=== PATIENT | male | born 1970 | race Caucasian/White ===

== ENCOUNTER 2020-11-01 10:00 | Inpatient (IN) | payer OTHER ==
[~2020-11-01] VITALS: Ht 182.9 cm; Wt 105.5 kg
[2020-11-01 10:01] VITALS: BP 118/91
[2020-11-01 10:28] LABS: ABSOLUTE NEUTROPHILS 13.6 thou/uL (1.4-8.2); BASOPHILS 0.5 % (0.0-2.0); HEMATOCRIT 48.5 % (42.0-52.0); HEMOGLOBIN 16.4 gm/dL (14.0-18.0); LYMPHOCYTES 3.3 % (24.0-44.0); MCHC 33.8 g/dL (28.0-37.0); MCV 88.6 fL (80.0-100.0); MONOCYTES 2.7 % (1.0-8.0); PLATELET COUNT 256 thou/uL (150-400); POLYS 93.5 % (36.0-66.0); RBC 5.48 mil/uL (4.50-6.00); RDW 12.6 % (10.5-14.5); WBC 14.5 thou/uL (4.0-11.0)
[2020-11-01 10:35] LABS: CALCIUM 9.2 mg/dL (8.5-10.1); CREATININE 1.3 mg/dL (0.7-1.3); POTASSIUM 4.2 mmol/L (3.5-5.1)
[2020-11-01 10:41] LABS: ALBUMIN 2.9 g/dL (3.4-5.0); TOTAL BILIRUBIN 0.8 mg/dL (0.2-1.0); TOTAL PROTEIN 7.2 g/dL (6.4-8.2)
[2020-11-01 11:24] LABS: BE(vivo) -4.2 mmol/L (-2 to +3); PCO2 34.9 mmHg (35.0-45.0); PO2 100.8 mmHg (80.0-100.0); pH 7.377 (7.360-7.450); sO2 97.5 % (92.0-98.0)
--- NOTE | 2020-11-01 13:32 | EKG ---
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
[2020-11-01 13:33] LABS: LARGE PLATELETS RARE
[2020-11-02] VITALS (117 sets, daily range): BP systolic 81–166; BP diastolic 38–98
--- NOTE | 2020-11-02 02:00 | NUR ---
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 COOPERATIVE. A VERY SWEET GENTLEMAN/ ON 100 % BIPAP O2 SAT 93 % WHEN ASKED HE SAID YES TO INTUBATION IF NEEDED. THAT HE HAS GRAND CHILDREN HE WANTS TO SEE GROW UP. WILL CONT TO MONITOR.
[2020-11-02 04:37] LABS: BE(vivo) -5.3 mmol/L (-2 to +3); HCO3 18.8 mmol/L (22.0-26.0); PO2 64.1 mmHg (80.0-100.0); pH 7.374 (7.360-7.450); sO2 92.2 % (92.0-98.0)
--- NOTE | 2020-11-02 06:00 | NUR ---
REMAINS ON 100 % BIPAP. RESP RATE 28 TO 42. O2 92 TO 93 % SINS TACH RATE 102 AFEBRILE. REMAINIS IN ENHANSED PRECAUTIONS FOR COVID 19
[2020-11-02 07:27] LABS: HEMATOCRIT 42.9 % (42.0-52.0); MCH 29.4 pg (26.0-34.0); MCHC 33.1 g/dL (28.0-37.0); RBC 4.82 mil/uL (4.50-6.00); RDW 12.5 % (10.5-14.5); WBC 14.7 thou/uL (4.0-11.0)
[2020-11-02 07:35] LABS: HEMOGLOBIN 14.2 gm/dL (14.0-18.0)
[2020-11-02 07:46] LABS: ALBUMIN 2.4 g/dL (3.4-5.0); CALCIUM 8.6 mg/dL (8.5-10.1); CREATININE 1.1 mg/dL (0.7-1.3); TOTAL BILIRUBIN 0.6 mg/dL (0.2-1.0); TOTAL PROTEIN 7.4 g/dL (6.4-8.2)
--- NOTE | 2020-11-02 10:36 | NUR ---
VASCULAR ACCESS CONSULTED FOR PICC LINE. PT'S LABS,MEDS,HX ORDER AND CONSENT VERIFIED. DISCUSSED BENEFITS AND RISK OF PICC WITH PT, VERBALIZED UNDERSTANDING. SHRADDHA BASILIC WAS WIDELY PATENT DL POWER PICC TRIMMED TO 45CM INSERTED TO 1CM EXTERNAL. PT TOLERATED WELL. STAT CXR ORDERED
--- NOTE | 2020-11-02 12:12 | HC ---
[facility] [place] [address] CONSULTATION Name: KALEIGH SILVER Room #: 243-P ADM IN M.R.#: [id number] Admission: 11/01/20 Attend Phys: Urmila Morgan Discharge: Date of : 68 Report #: [id number] THIS REPORT FOR: cc: KARLENE - Family physician unknown KARLENE - Family physician unknown Garfield Rizo MD ~ DATE OF SERVICE: 11/02/2020 INFECTIOUS DISEASE CONSULTATION ATTENDING PHYSICIAN: Urmila Morgan MD REASON FOR EVALUATION: COVID-19 infection, complicated by pneumonitis and respiratory failure. HISTORY OF PRESENT ILLNESS: Chart reviewed, the patient examined. This is a 50-year-old with history of diabetes mellitus, also rheumatoid arthritis, who states he has been feeling somewhat poorly over the last 4 weeks. He was tested for COVID 1 week ago, was confirmed to be positive. He has been quarantining at home; however, due to worsening signs and symptoms, he did come to the Emergency Room. He was found to be hypoxemic, now on ventilatory support with BiPAP 15 liters per minute, FiO2 of 100%. He does admit to fevers. He has had some GI related complaints, those have seemingly resolved and some anorexia. Additional evaluation noted blood sugar was 400 on admission. Creatinine 1.3 that is improved to 1.1 now. Albumin 2.9. Troponin level was normal. Lactic acid was elevated at 3.3, repeat later was down to 1.7. Blood cultures 1 out of 2 with growth of gram-positive cocci. CTA chest PE protocol due to followup chest x-ray, which showed bilateral infiltrates, did show no evidence of pulmonary emboli, did show extensive chronic pulmonary changes with underlying ground-glass pulmonary appearance and bronchiectasis. He was empirically started on antimicrobial therapy with Levaquin and cefepime, initially given dose of azithromycin and Zosyn. ALLERGIES: LISTED TO ZOSYN DESCRIBED A GENERALIZED ITCH. MEDICATIONS: Include alteplase, cholecalciferol, thiamine, levothyroxine, dexamethasone, ascorbic acid, zinc, famotidine, cefepime, enoxaparin, nitroglycerin, p.r.n. analgesics. PAST MEDICAL HISTORY: As described above, diabetes mellitus, has a history of asthma, history of hypertension, previous appendectomy, rheumatoid arthritis. SOCIAL HISTORY: Nonsmoker, no ethanol, no illicit drug use. FAMILY HISTORY: Noncontributory. [address] [address] CONSULTATION Name: KALEIGH SILVER Room #: 243-P [facility] IN ..#: [id number] Admission: 11/01/20 Attend Phys: Urmila Morgan Discharge: Date of : 68 Report #: [id number] REVIEW OF SYSTEMS: Otherwise, limited due to his state and dyspnea. PHYSICAL EXAMINATION: GENERAL: Appears somewhat chronically ill, undernourished. He is pleasant, cooperative, does have episodic paroxysms of coughing, trying to speak, appears somewhat undernourished. VITAL SIGNS: Temperature 98.3, pulse 105, respirations 27, blood pressure 130/77. SKIN: Warm, dry, no rashes. HEENT: Normocephalic. Extraocular muscles intact. He has got a full mask BiPAP in place. NECK: Supple. LUNGS: Transmitted upper airway sounds, does have some crackles, coarse sounds at the bases. I do not appreciate any wheezes at the moment. HEART: Distant, tachycardic. I do not appreciate any murmurs or irregularity. ABDOMEN: Soft, nontender, nondistended. EXTREMITIES: No cyanosis. GENITOURINARY AND RECTAL: Deferred. LABORATORY DATA: Blood cultures described above, 1 out of 2 with gram-positive cocci. Chest x-ray from this morning showed interstitial opacities throughout both lungs. Lactic acid now 1.7, down from 3.3. Electrolytes: Sodium 137, potassium 4.0, chloride 98, bicarbonate is 18, anion gap of 21, BUN and creatinine 31 and 1.1, glucose of 343, albumin 2.4, total protein 7.4. Estimated GFR of 71. CBC: White count 14.7, H and H 14.2 and 42.9, platelets of 264. ASSESSMENT: COVID-19 infection, complicated by pneumonitis, respiratory failure. Apparently based on CT, he has underlying lung disease. Whether this is due to the chronic asthma and perhaps repeated lower respiratory tract inflammatory process, also has diabetes mellitus, it is at this point uncontrolled, may have a degree of immunosuppression due to his rheumatoid arthritis. We will continue empiric antibacterial therapy given possibility of secondary bacterial pneumonitis. We will add remdesivir and ivermectin as well given the tenuous nature of his situation. Continue dexamethasone as well as vitamins. He remains quite tenuous and may well get worse before he gets better. Thank you and we will follow. <ELECTRONICALLY SIGNED> By: Garfield Rizo MD 11/02/20 1212 [id number] [id number] Garfield Rizo MD /nt
--- NOTE | 2020-11-02 12:43 | NUR ---
CXR SHOWED PICC UP RIJ. ATTEMPTED OTW WITH NEW KIT UNSUCCESSFUL, ATTEMPTED SHRADDHA CEPHALIC UNABLE TO PASS GUIDEWIRE. THEN DID SHRADDHA BASILIC, TL PICC TRIMMED AT 45CM INSERTED TO 3CM EXTERNAL. STAT CXR DONE. PICC RELEASED FOR IMMEDIATE USE TO SARWAT DE LOS SANTOS PER PROTOCOL
--- NOTE | 2020-11-02 18:15 | NUR ---
VASCULAR ACCESSBTEM CALLED BACK TO ICU PT PULLED OUT PICC LINE. PT NOW HAS RESTAINTS ON. CHRISTIANO BRACHIAL WAS WIDELY PATENT WITH USG. 4FR DL PICC TRIMMED TO 48CM INSERTED TO 2CM EXTERNAL. STAT CXR ORDERED
--- NOTE | 2020-11-02 18:30 | NUR ---
1293 DR. FELIZ SPOKEN TOO ABOUT PATIENTS ELEVATED RR. ORDERS GIVEN. PATIENT DURING SHIFT INITIATED ON PRECEDEX GTT PER DR FELIZ ORDER. PATIENT RESPRITORY RATE IMPROVING. DURING THE SHIFT PATIENT BECAME MORE CONFUSED. PATIENT FORGETS WHAT CITY HE IS IN BUT IS ABLE TO STATE WHAT STATE. PATIENT PULLS OUT PICC LINE THAT WAS PLACED AT 1705. DR FELIZ NOTIFIED OF THE CHANGES IN MENTAL STATUS. NEW PICC LINE REINSERTED. CIWA SCORING STARTED PER DR. MAHARAJ.
--- NOTE | 2020-11-02 19:00 | NUR ---
CXR CONFIRMS PICC IN UPPER SVC, PICC RELEASED FOR IMMEDIATE USE PER PROTOCOL TO SARWAT DE [place] SANTOS. PICC ADVANCED 2CM EXTERNAL NOW 0CM
[2020-11-03] VITALS (98 sets, daily range): BP systolic 77–151; BP diastolic 40–89
[2020-11-03 00:03] LABS: BE(vivo) -4.5 mmol/L (-2 to +3); HCO3 20.7 mmol/L (22.0-26.0); PO2 84.2 mmHg (80.0-100.0); pH 7.343 (7.360-7.450); sO2 95.8 % (92.0-98.0)
[2020-11-03 04:48] LABS: CALCIUM 8.6 mg/dL (8.5-10.1); CREATININE 1.1 mg/dL (0.7-1.3); DIRECT BILIRUBIN 0.1 mg/dL (<0.1-0.2); POTASSIUM 4.3 mmol/L (3.5-5.1); TOTAL BILIRUBIN 0.5 mg/dL (0.2-1.0); TOTAL PROTEIN 6.7 g/dL (6.4-8.2)
--- NOTE | 2020-11-03 08:15 | NUR ---
0745- REPORT RECEIVED FROM MAGALI SERRANO. ZACH STATES HE WILL NOTIFY FAMILY OF PT'S INTUBATION PRIOR TO ENDING HIS SHIFT.
--- NOTE | 2020-11-03 08:17 | NUR ---
When tube feeds ready to start, recommend vital high protein goal 40ml/hr and 200 ml water flush mixed with 1 packet beneprotein every 6hr. If no feeding pump available, use 4 cartons vital high protein per day bolus.
--- NOTE | 2020-11-03 09:57 | NUR ---
cm completed initial assessment to intro cm role and obtain pyschosocial hx. cm spk w/pt d/t covid 19 precautions. pt lives w/ g/f ileana. 6 steps from garage to main level, 6 steps from main level to br. pt is unemployeed, independent w/cares, active, drives has walker /wc (needs new tires). ileana denies hx of snf or hh, "not to my knowledge. cm to cont to follow.
--- NOTE | 2020-11-03 09:59 | NUR ---
PT'S DPOA LALO WASHINGTON CALLED AND GOT PT UPDATE FROM RN. LALO STATES SHE IS UPSET THAT NO ONE CALLED HER YESTERDAY TO INFORM HER HE HAD TO BE INTUBATED AND PUT ON THE VENTILATOR. RN ANSWERED LALO'S QUESTIONS AND OFFERED FACETIME AN OPTION IF SHE WANTS TO SEE THE PT. SHE DECLINED AT THIS TIME BUT STATES SHE WOULD LIKE A PHONE CALL IF ANYTHING SHOULD CHANGE IN THE PT'S CONDITION.
--- NOTE | 2020-11-03 20:07 | NUR ---
PT WAS HAVING DIFFICULTY KEEP O2 SAT > THAN 90% WITH A FIO2 OF 100% ON THE VENTILATOR. RT WORKED VARIOUS DIFFERENT SETTING WITH THE VENT THROUGH OUT THE DAY AND ENDED UP CHANGING THE VENT FROM AC TO APRV. PT'S SATS INCREASED TO 99-100% AND PT APPEARED TO BE LESS LABORED WITH BREATHS.
[2020-11-03 20:42] LABS: BE(vivo) -4.7 mmol/L (-2 to +3); HCO3 22.1 mmol/L (22.0-26.0); PCO2 47.1 mmHg (35.0-45.0); PO2 142.7 mmHg (80.0-100.0); sO2 98.6 % (92.0-98.0)
[2020-11-03 22:12] LABS: BE(vivo) -2.9 mmol/L (-2 to +3); HCO3 22.4 mmol/L (22.0-26.0); PCO2 41.3 mmHg (35.0-45.0); PO2 67.7 mmHg (80.0-100.0); pH 7.353 (7.360-7.450); sO2 92.7 % (92.0-98.0)
[2020-11-04] VITALS (88 sets, daily range): BP systolic 82–122; BP diastolic 48–73
--- NOTE | 2020-11-04 02:43 | NUR ---
[address] FELIZ VIA PHONE REGARDING PT'S RESPIRATORY STATUS. ABGs DRAWN. CRITICAL pH REPORTED AT 7.29. ORDER TO CHANGE PT BACK TO ORIGINAL VENT SETTINGS ORDERED. WHICH WERE FOLLOWS: AC RR 18 TV 550 PEEP 12 FIO2 100% ORDER TO GIVE 2 AMPS BICARB AND REDRAW ABGs IN ONE HOUR. 2208 ABGs IMPROVED. PT SATs >92%.
[2020-11-04 06:48] LABS: ANION GAP 12 mmol/L (7-16); BUN 42 mg/dL (7-18); CALCIUM 8.8 mg/dL (8.5-10.1); CHLORIDE 106 mmol/L (98-107); CO2 25 mmol/L (21-32); DIRECT BILIRUBIN < 0.1 mg/dL (<0.1-0.2); GLUCOSE 368 mg/dL (74-106); PHOSPHORUS 3.7 mg/dL (2.5-4.9); POTASSIUM 4.3 mmol/L (3.5-5.1); SGOT 14 U/L (15-37); SGPT 22 U/L (30-65); SODIUM 143 mmol/L (136-145); TOTAL BILIRUBIN 0.4 mg/dL (0.2-1.0); TOTAL PROTEIN 6.8 g/dL (6.4-8.2)
--- NOTE | 2020-11-04 07:05 | NUR ---
FOLLOWS COMMANDS, COUGH/GAG, MOVES ALL EXTREMITITES, NODS YES/NO TO QUESTIONS. SEDATED ON PROP AND FENT GTTS.
--- NOTE | 2020-11-04 11:54 | NUR ---
UPDATED DOPA LALO ON PATIENT STATUS. PATIENT REMAINS INTUBATED/SEDATION ON VENT. HIGH SUPPORT. PROPOFOL GTT FOR VENT MANAGEMENT. LEVOPHED GTT. TITRATING, SEE MEDICATION TITRATION SHEET. INCREASING TUBE FEED RATES TO MEET GOAL.
[2020-11-05] VITALS (65 sets, daily range): BP systolic 82–114; BP diastolic 48–72
[2020-11-05 04:02] LABS: HEMATOCRIT 41.8 % (42.0-52.0); HEMOGLOBIN 13.9 gm/dL (14.0-18.0); MCH 29.9 pg (26.0-34.0); MCHC 33.3 g/dL (28.0-37.0); MCV 89.8 fL (80.0-100.0); RBC 4.65 mil/uL (4.50-6.00); RDW 12.8 % (10.5-14.5)
[2020-11-05 04:17] LABS: ALBUMIN 1.9 g/dL (3.4-5.0); CALCIUM 8.3 mg/dL (8.5-10.1); CREATININE 0.7 mg/dL (0.7-1.3); DIRECT BILIRUBIN < 0.1 mg/dL (<0.1-0.2); PHOSPHORUS 3.2 mg/dL (2.6-4.7); POTASSIUM 4.8 mmol/L (3.5-5.1); SGOT 14 U/L (15-37); SGPT 10 U/L (16-63); TOTAL BILIRUBIN 0.3 mg/dL (0.2-1.0); TOTAL PROTEIN 6.5 g/dL (6.4-8.2)
--- NOTE | 2020-11-05 05:57 | NUR ---
RESTING QUIETLY FOR MOST OF SHIFT, SV CONTRAINDICATED, UNABLE TO WEAN LEVOPHED. ADEQUATE UOP, TOLERATING TF.
--- NOTE | 2020-11-05 15:33 | NUR ---
PATIENT REMAINS ON VENT - HIGH SUPPORT. FIO2 100%. FENTANYL AND PROPOFOL GTT FOR VENT MANAGEMENT. UNABLE TO WEAN LEVOPHED GTT. TOLERATING TUBE FEEDS. AFEBRILE. ADEQUATE URINE OUTPUT. PERSISTENT HYPERGLYCEMIA, ORDERS TO CHANGE LANTUS DOSE.
[2020-11-06] VITALS (131 sets, daily range): BP systolic 78–155; BP diastolic 47–88
[2020-11-06 04:26] LABS: BE(vivo) 3.2 mmol/L (-2 to +3); HCO3 30.4 mmol/L (22.0-26.0); PCO2 55.7 mmHg (35.0-45.0); PO2 79.9 mmHg (80.0-100.0); pH 7.355 (7.360-7.450); sO2 95.1 % (92.0-98.0)
[2020-11-06 05:06] LABS: ABSOLUTE NEUTROPHILS 10.9 thou/uL (1.4-8.2); BASOPHILS 0.2 % (0.0-2.0); EOSINOPHILS 0.3 % (0.0-3.0); HEMATOCRIT 41.5 % (42.0-52.0); HEMOGLOBIN 13.5 gm/dL (14.0-18.0); LYMPHOCYTES 2.4 % (24.0-44.0); MCH 29.8 pg (26.0-34.0); MCHC 32.6 g/dL (28.0-37.0); MCV 91.4 fL (80.0-100.0); MONOCYTES 1.8 % (1.0-8.0); PLATELET COUNT 307 thou/uL (150-400); POLYS 95.3 % (36.0-66.0); RBC 4.54 mil/uL (4.50-6.00); RDW 12.8 % (10.5-14.5); WBC 11.4 thou/uL (4.0-11.0)
[2020-11-06 05:20] LABS: ALBUMIN 1.7 g/dL (3.4-5.0); ANION GAP 5 mmol/L (7-16); BUN 39 mg/dL (7-18); CALCIUM 8.6 mg/dL (8.5-10.1); CHLORIDE 110 mmol/L (98-107); CO2 29 mmol/L (21-32); CREATININE 0.9 mg/dL (0.7-1.3); DIRECT BILIRUBIN < 0.1 mg/dL (<0.1-0.2); GLUCOSE 300 mg/dL (74-106); PHOSPHORUS 2.3 mg/dL (2.6-4.7); POTASSIUM 4.4 mmol/L (3.5-5.1); SGOT 24 U/L (15-37); SGPT 10 U/L (16-63); SODIUM 144 mmol/L (136-145); TOTAL BILIRUBIN 0.3 mg/dL (0.2-1.0); TOTAL PROTEIN 6.3 g/dL (6.4-8.2)
--- NOTE | 2020-11-06 05:43 | NUR ---
STARTED PRECEDEX IN AN ATTEMPT TO GET PT OFF LEVO BY DECREASING PROPOFOL. PT BP CONTINUE TO BE LABILE AND 89-100'S SYSTOLIC, BUT MAPS >60 CONSISTENTLY. COUGHS WITH CARES BUT DOES NOT OTHERWISE RESPOND.
[2020-11-06 17:02] LABS: BE(vivo) -0.4 mmol/L (-2 to +3); PCO2 49.5 mmHg (35.0-45.0); PO2 115.9 mmHg (80.0-100.0); pH 7.339 (7.360-7.450)
--- NOTE | 2020-11-06 19:55 | NUR ---
PT HAD BILATERAL PNEUMOHORACES AND SUBCUTANOUS EMPHYSEMA IN CHEST XRAY THIS AM. BILATERAL CHEST TUBE AT THE RIGHT UPPER POSTERIOR BACK AND LEFT UPPER POSTERIOR BACK WERE PLACED BY DR. FELIZ AT BEDSIDE. PT KEPT DESATING TO 70'S. MULTIPLE ATTEMPTS OF BAGGING THE PT AND CHANGING THE VENT SETTINGS. PT WAS GIVEN 10MG OF ROCURINIUM AND EVEN WENT UP ON SEDATION PER DR. FELIZ. P ON APRV MODE ON VENTILATOR AND SPO2 ABOVE 95%. PT RUNNING A FEVER 100.8 TYLENOL GIVEN. ROB WAS UPDATED ABOUT THE ENTIRE PT CONDITION AND WAS MADE AWARE THAT PT WAS VERY SICK. ALL HER QUESTIONS WERE ANSWERED.
[2020-11-07] VITALS (100 sets, daily range): BP systolic 66–203; BP diastolic 31–176
--- NOTE | 2020-11-07 06:59 | NUR ---
ONE EPISODE OF DROPPING 02 SATS TO 86% SPONTANEOUSLY WITHOUT RN IN ROOM. CAME UP AFTER APPROX 10 MINUTES, INCREASED TO 100% AND SUCTIONED X1. BED IN ROTATION, TITRATING GTTS PT TOLERATES PER PROTOCOL. TOLERATING TF AND ORAL CARES.
[2020-11-07 11:13] LABS: BE(vivo) 4.6 mmol/L (-2 to +3); HCO3 27.8 mmol/L (22.0-26.0); PCO2 36.5 mmHg (35.0-45.0); pH 7.499 (7.360-7.450); sO2 89.4 % (92.0-98.0)
[2020-11-07 11:14] LABS: PO2 51.3 mmHg (80.0-100.0)
--- NOTE | 2020-11-07 13:04 | NUR ---
RT CALLED TO PATIENTS ROOM REGARDING SATURATION IN THE LOW 70'S. FOUND ANOTHER RT BAGGING. I TOOK OVER THE BAG AND ASKED IF THE CHEST TUBES WERE STILL BUBBLING. THE LEFT SIDE CHEST TUBE WAS DISLODGED AND HE WAS RETAINING AIR SUB Q RAPIDLY. I NOTIFIED DR FELIZ AND HE WAS 30 MINUTES OUT. I CONTACTED DR GUZMAN WHO CAME DOWN TO DECOMPRESS THE TENSION PNEUMO AND INSERT ANOTHER CHEST TUBE. PATIENT AT THIS TIME HAD A SATURATION IN THE 50'S AT LOWEST AND RUNS OF VTACH. CHEST TUBE PLACED, AND PATIENT PLACED BACK ON THE VENT. XRAY CALLED AND STATED THE THE TUBE NEEDED TO BE PULLED OUT 6CM- DR GUZMAN PULLED THE TUBE BACK AND PATIENT NOW RESTING COMFORTABLY WITH A CENTRAL LINE BEING PLACED.
--- NOTE | 2020-11-07 15:43 | NUR ---
CONSULTED EMERGENTLY TO REPLACE A NONFUNCTIONING PICC FOR A UNSTABLE PATIENT PER MEDICAL NECESSITY. THE RIGHT JUGULAR WAS WIDLEY PATENT. A #6F TRIPLE LUMEN CENTRAL LINE WAS PLACED PER HOSPITAL POLICY. THE 25CM LINE WAS ADVANCED WITHOUT DIFFICULTY. A STAT CHEST XRAY CONFIRMED LINE INPROPER POSITION AND RELEASED FOR USE
[2020-11-07 16:58] LABS: BE(vivo) -0.5 mmol/L (-2 to +3); HCO3 25.8 mmol/L (22.0-26.0); PCO2 48.4 mmHg (35.0-45.0); pH 7.344 (7.360-7.450); sO2 79.2 % (92.0-98.0)
[2020-11-07 17:13] LABS: HEMATOCRIT 40.7 % (42.0-52.0); HEMOGLOBIN 13.2 gm/dL (14.0-18.0); MCH 29.5 pg (26.0-34.0); MCHC 32.5 g/dL (28.0-37.0); RBC 4.47 mil/uL (4.50-6.00); RDW 12.7 % (10.5-14.5); WBC 11.7 thou/uL (4.0-11.0)
[2020-11-07 17:30] LABS: ANION GAP 14 mmol/L (7-16); BUN 33 mg/dL (7-18); CHLORIDE 106 mmol/L (98-107); CO2 26 mmol/L (21-32); GLUCOSE 414 mg/dL (74-106); POTASSIUM 4.8 mmol/L (3.5-5.1); SODIUM 146 mmol/L (136-145)
[2020-11-07 17:40] LABS: TROPONIN-I <0.06 ng/mL (<0.06)
--- NOTE | 2020-11-07 21:34 | NUR ---
PT HAD A CHEST XRAY AT 1030 TODAY. LEFT CHEST TUBE HAD DISLODGED. PT DESAT TO 88%. PT WAS ON PUT ON FIO2 100%. PT KEPT DESAT. RT BAGGED THE PT. SPO2 CAME UP BUT THE CHEST TUBE DID NOT SHOW AIR LEAK PRIOR. CODE WAS CALLED. ER DOCTOR THOMAS PUT IN ANOTHER 24 FR CHEST TUBE BELOW THE PREVIOUS CHEST TUBE AT THE LEFT SIDE. WATER BUBBLING WAS NOTED. CHEST XRAY WAS DONE TO CONFIRM, PT SPO2 ABOVE 90%. PT STARTED DESAT AGAIN. RIGHT CHEST TUBE WATER WASNT BUBBLING LIKE PRIOR. DR. FELIZ WAS NOTIFIED IN EACH INCIDENCE. RT BAGGED THE PT AGAIN. NO PHYSICIAN AT BEDSIDE SO CODE WAS CALLED. DR. MAHARAJ ARRIVED AND PLACED A 24 FR CHEST TUBE AT THE RIGHT ANTERIOR AND PULLED OUT THE RIGHT POSTERIOR PIG TAIL CHEST TUBE. CHEST XRAY WAS DONE TO CONFIRM THE PLACEMENT AND DR. MAHARAJ OKAYED THE PLACEMENT ALTHOUGH IT WAS KINKED.DR. FELIZ WAS AT BEDSIDE. THE LEFT CHEST TUBE PLACED BY DR. GUZMAN WAS DISLODGED AGAIN SO DR. FELIZ PULLED OUT THE LEFT CHEST TUBE AND RESUTURED IT. CHEST XRAY WAS DONE TO CONFIRM IT. PT STARTED DESAT AGAIN. PT DESAT TO 60% EACH TIME BEFORE RT STARTED BAGGING THE PT. RT ANALILIA BAGGED THE PT. DR. DALLAS AND ER DR AT BEDSIDE. PT PRESSURE WAS IN 60'S. LEVOPHED AND VASOPRESSIN TITRATED UP. CHEST TUBE WAS READJUSTED. REPEAT CHEST XRAY WAS DONE. TALKED TO THE ANCE ON THE FACETIME AND INFORMED THE FIANCE ABOUT HOW CRITICAL THE PT IS. MACI MADE THE DECISION TO MAKE PT DNR.DR. FELIZ TALKED TO THE ANCE WELL. MACI RIVAS IS AWARE THAT THE PT IS DESAT TO 55% ON VENTILATOR. SHE MADE HIM DNR. MACI RIVAS DID NOT GET HER VISITATION APPROVED TONIGHT.
[2020-11-08] VITALS (88 sets, daily range): BP systolic 77–149; BP diastolic 39–85
[2020-11-08 04:34] LABS: BE(vivo) 2.4 mmol/L (-2 to +3); PO2 61.9 mmHg (80.0-100.0); sO2 86.8 % (92.0-98.0)
[2020-11-08 04:36] LABS: PCO2 75.4 mmHg (35.0-45.0); pH 7.246 (7.360-7.450)
--- NOTE | 2020-11-08 06:00 | NUR ---
remains intubated AND SEDATED. FOLLOWS NO COMMANFS REMAINS A DNR RIGHT CT [address] ZERO 1500 CC UO THIS SHIFT. WILL CPMNT TO MONITOR
[2020-11-08 06:31] LABS: ABSOLUTE NEUTROPHILS 9.9 thou/uL (1.4-8.2); BASOPHILS 0.1 % (0.0-2.0); HEMATOCRIT 38.8 % (42.0-52.0); HEMOGLOBIN 12.6 gm/dL (14.0-18.0); LYMPHOCYTES 3.1 % (24.0-44.0); MCH 29.8 pg (26.0-34.0); MCHC 32.6 g/dL (28.0-37.0); MCV 91.6 fL (80.0-100.0); MONOCYTES 3.6 % (1.0-8.0); PLATELET COUNT 281 thou/uL (150-400); POLYS 93.2 % (36.0-66.0); RBC 4.23 mil/uL (4.50-6.00); RDW 13.1 % (10.5-14.5); WBC 10.7 thou/uL (4.0-11.0)
[2020-11-08 06:58] LABS: ALBUMIN 1.8 g/dL (3.4-5.0); CALCIUM 8.5 mg/dL (8.5-10.1); CREATININE 0.9 mg/dL (0.7-1.3); POTASSIUM 5.2 mmol/L (3.5-5.1); TOTAL BILIRUBIN 0.3 mg/dL (0.2-1.0); TOTAL PROTEIN 6.7 g/dL (6.4-8.2)
--- NOTE | 2020-11-08 15:00 | NUR ---
clau Bradley and niru called for an update on pt. rn returned call, updated that pt is not responsive, meds given for sedation and comfort, maintaining bp only with the use of continous iv bp medication. questions answered to satisfaction.
--- NOTE | 2020-11-08 15:46 | NUR ---
ON-GOING ASSESSMENT: CM REVIEWED CHART. PT IS COVID POSITIVE AND REMAINS ON THE VENT. PT HAD BILATERAL PNEUMOTHROAICES AND HAS CHEST TUBES IN PLACE. CTS FOLLOWING. CM WILL CONTINUE TO FOLLOW TO ASSIST NEEDED.
[2020-11-09] VITALS (67 sets, daily range): BP systolic 83–163; BP diastolic 48–99
[2020-11-09 05:17] LABS: HEMATOCRIT 37.7 % (42.0-52.0); HEMOGLOBIN 12.2 gm/dL (14.0-18.0); MCH 29.9 pg (26.0-34.0); MCHC 32.4 g/dL (28.0-37.0); MCV 92.1 fL (80.0-100.0); RBC 4.1 mil/uL (4.50-6.00); RDW 12.9 % (10.5-14.5); WBC 14.4 thou/uL (4.0-11.0)
--- NOTE | 2020-11-09 05:30 | NUR ---
gcs is 3. notified mtn. referral number is [phone]. call mtn back if family plans to move towards comfort care or withdrawal of care.
[2020-11-09 06:02] LABS: CALCIUM 8.7 mg/dL (8.5-10.1); CREATININE 0.7 mg/dL (0.7-1.3); POTASSIUM 4.5 mmol/L (3.5-5.1)
--- NOTE | 2020-11-09 06:56 | NUR ---
PT NOT PROGRESSING TOWARDS GOALS IN PLAN OF CARE. 1500 CC URINE OUTPUT OVERNIGHT. SEDATED ON PROPOFOL AND FENTANYL GTTS. PROPOFOL TITRATED DOWN TO 30.
--- NOTE | 2020-11-09 18:23 | NUR ---
PT MACI RIVAS WAS UPDATED ON PT CONDITION. HER QUESTIONS WERE ANSWERED. SHE WAS GIVEN DIRECT ICU TELEPHONE NUMBER FOR FURTHER QUESTIONS AND FACETIME.
[2020-11-10] VITALS (64 sets, daily range): BP systolic 87–155; BP diastolic 50–76
--- NOTE | 2020-11-10 08:52 | NUR ---
Recommend change tube feed formula back to vital high protein at goal of 50ml/hr. This formula is also a low carbohydrate formula compared to glucerna and has a higher protein content.
[2020-11-11] VITALS (39 sets, daily range): BP systolic 92–161; BP diastolic 52–93
[2020-11-11 05:20] LABS: HEMATOCRIT 32.1 % (42.0-52.0); HEMOGLOBIN 10.6 gm/dL (14.0-18.0); MCHC 32.9 g/dL (28.0-37.0); MCV 91.1 fL (80.0-100.0); RBC 3.52 mil/uL (4.50-6.00); RDW 12.3 % (10.5-14.5); WBC 11.7 thou/uL (4.0-11.0)
[2020-11-11 05:44] LABS: CALCIUM 8.1 mg/dL (8.5-10.1); CREATININE 0.5 mg/dL (0.7-1.3); POTASSIUM 4.1 mmol/L (3.5-5.1)
--- NOTE | 2020-11-11 06:56 | NUR ---
PATIENT REMAINS ON THE VENT. PROPOFOL, VERSED, FENTANYL FOR VENT MENAGEMENT. AFEBRILE. SELENE CHEST TUBES INTACT. BYRNES IN PLACE WITH GOOD U/O. FAMILY UPDATED
[2020-11-11 13:17] LABS: ALBUMIN 1.6 g/dL (3.4-5.0); DIRECT BILIRUBIN < 0.1 mg/dL (<0.1-0.2); LIPASE 83 U/L (73-393); SGOT 25 U/L (15-37); SGPT 11 U/L (30-65); TOTAL BILIRUBIN 0.3 mg/dL (0.2-1.0); TOTAL PROTEIN 5.5 g/dL (6.4-8.2)
--- NOTE | 2020-11-11 20:10 | NUR ---
2000 RN updated SO, Ame, and answered all questions. She states "I want to stay the course for now." Patient did not progress medically today, rather he is in much the same condition as this AM. Ventilator requirements are unchanged. He was febile from [id number] and antibiotics were changed. He increased in sedation requirements to remain synchronus with the ventilator. He is resting comfortably on current settings and is maintaining saturation >90.
--- NOTE | 2020-11-11 20:16 | NUR ---
SO Ame states "if it ever appears that he has a level of consciouness he could hear me, please let me facetime with him. 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
[2020-11-12] VITALS (36 sets, daily range): BP systolic 87–107; BP diastolic 52–69
[2020-11-12 05:30] LABS: HEMOGLOBIN 9.8 gm/dL (14.0-18.0); MCH 29.8 pg (26.0-34.0); MCHC 32.8 g/dL (28.0-37.0); MCV 90.8 fL (80.0-100.0); RBC 3.3 mil/uL (4.50-6.00); RDW 12.9 % (10.5-14.5); WBC 12.3 thou/uL (4.0-11.0)
[2020-11-12 05:39] LABS: CALCIUM 8.3 mg/dL (8.5-10.1); CREATININE 0.7 mg/dL (0.7-1.3); POTASSIUM 4.6 mmol/L (3.5-5.1)
--- NOTE | 2020-11-12 10:42 | NUR ---
ON-GOING ASSESSMENT: CM REVIEWED CHART. PT REMAINS IN ENHANCED ISOLATION DUE TO COVID 19 AND IS ON THE VENT. PT STILL HAS CHEST TUBES IN PLACE DUE TO BIALTERAL PNEUMOTHROACES. CM WILL CONTINUE TO FOLLOW TO ASSIST NEEDED.
--- NOTE | 2020-11-12 15:54 | NUR ---
PT INTUBATED AND SEDATED, VENT SETTINGS UNCHANGED. UNABLE TO DO SEDATION VACATION DUE TO HIGH FIO2/PEEP. GCS-3, MTN HAS BEEN NOTIFIED. BILATERAL CHEST TUBES ARE PATENT AND WNL. NO RESTRAINTS. PT AFEBRILE, ADEQUATE UOP, NO BM, TOLERATING TUBE FEED WITH RESIDUALS WNL. PT AND FAMILY HAVE BEEN UPDATED AND EDUCATED ON PT CONDITION AND POC. PT NOT PROGRESSING TOWARDS POC. SPOKE WITH AT LENGTH ABOUT POSSIBLE PALLIATIVE CARE. LABS/MEDS/IMAGES REVIEWED.
[2020-11-13] VITALS (32 sets, daily range): BP systolic 88–133; BP diastolic 51–83
--- NOTE | 2020-11-13 16:27 | NUR ---
PT INTUBATED AND SEDATED. VSS. NO SEDATION VACATION DUE TO HIGH FIO2 AND PEEP. BILATERAL CHEST TUBE PATENT. PT TOLERATING TUBE FEEDING. BYRNES TO MARGARITO. PT NOTPROGRESSING MIRA POC GOALS.
[2020-11-14] VITALS (31 sets, daily range): BP systolic 92–141; BP diastolic 55–81
[2020-11-14 04:10] LABS: BE(vivo) 6.2 mmol/L (-2 to +3); HCO3 33.5 mmol/L (22.0-26.0); PO2 125.4 mmHg (80.0-100.0); pH 7.343 (7.360-7.450); sO2 98.2 % (92.0-98.0)
--- NOTE | 2020-11-14 06:35 | NUR ---
PT INTUBATED/SEDATED, HIGH SETTINGS FOR VENT, DID NOT DO A SEDATION VACATION, AND MINIMIZED MAJOR TURNS TO AVOID DESATS. BOTH CHEST TUBES HAD 30 ML OUTPUT OVERNIGHT; AIR LEAK PRESENT ON BOTH C.T. BUT GREATER ON LEFT SIDE; NO TIDALING PRESENT ON EITHER SIDE. NO OTHER CONCERNS.
[2020-11-14 06:47] LABS: HEMATOCRIT 29.9 % (42.0-52.0); HEMOGLOBIN 9.7 gm/dL (14.0-18.0); MCH 29.9 pg (26.0-34.0); MCHC 32.5 g/dL (28.0-37.0); PLATELET COUNT 217 thou/uL (150-400); RBC 3.25 mil/uL (4.50-6.00); RDW 12.8 % (10.5-14.5); WBC 10.3 thou/uL (4.0-11.0)
[2020-11-14 07:05] LABS: ALBUMIN 1.6 g/dL (3.4-5.0); CALCIUM 8.4 mg/dL (8.5-10.1); CREATININE 0.6 mg/dL (0.7-1.3); POTASSIUM 4.5 mmol/L (3.5-5.1); TOTAL BILIRUBIN 0.3 mg/dL (0.2-1.0); TOTAL PROTEIN 5.7 g/dL (6.4-8.2)
[2020-11-14 07:43] LABS: ABSOLUTE NEUTROPHILS 9.2 thou/uL (1.4-8.2); METAMYELOCYTES 2 %; PLATELET ESTIMATE NORMAL
--- NOTE | 2020-11-14 18:38 | NUR ---
PATIENT NOT PROGRESSING TOWARDS DISMISSAL GOALS. WEANED TO 75% FIO2 ON VENTILATOR. NO CALLS FROM FAMILY TODAY FOR UPDATES.
[2020-11-15] VITALS (37 sets, daily range): BP systolic 100–138; BP diastolic 57–85
--- NOTE | 2020-11-15 02:13 | NUR ---
1900-SPOKE TO PT'S Srinivas MAY; GAVE UPDATE ON CONDITION, NO MAJOR EVENTS IN THE LAST 24 HOURS, HAVE TITRATED FIO2 DOWN TO 75%. SHE EXPRESSED BEING GRATEFUL FOR THE CARE, WOULD LIKE TO FACETIME W/PT SOON/WHENEVER CONVENIENT. PT CONTINUES ON VERSED, FENTANYL, AND PROPOFOL. SLUGGISH EYE RESPONSE, VERY MINIMAL COUGH REFLEX TO SUCTION. CHEST TUBES INTACT TO -20 SUCTION, NO TIDALING, AIR LEAK PRESENT ON LEFT AND VERY SLIGHT AIR LEAK ON RIGHT.
--- NOTE | 2020-11-15 10:19 | NUR ---
If physician allows increase in water flushes to 200ml tid, then add 1 packet beneprotein in each flush.
[2020-11-15 10:46] LABS: BE(vivo) 6.2 mmol/L (-2 to +3); HCO3 31.1 mmol/L (22.0-26.0); PCO2 46.3 mmHg (35.0-45.0); PO2 58.4 mmHg (80.0-100.0); pH 7.445 (7.360-7.450); sO2 91.1 % (92.0-98.0)
--- NOTE | 2020-11-15 18:30 | NUR ---
PATIENT NOT PROGRESSING TOWARDS DISMISSAL GOALS. PATIENT HAD NEW RIGHT POSTERIOR CHEST TUBE PLACED BY DR. FELIZ. AFTE CHEST TUBE PLACEMENT, PATIENT SATURATIONS IMPROVED AFTER NEW RIGHT CHEST TUBE PLACEMENT. NO CALLS FROM FAMILY TODAY FOR UPDATES.
[2020-11-16] VITALS (29 sets, daily range): BP systolic 90–127; BP diastolic 50–76
--- NOTE | 2020-11-16 16:07 | NUR ---
PATIENT REMAINS ON HIGH SUPPORT ON VENT. PROPOFOL, VERSED AND FENTANYL GTTS FOR VENT MANAGEMENT. 100% FIO2. BILATERAL CHEST TUBES. ORDERS TO INCREASE SUCTION TO -30 ON RIGHT SIDE CHEST TUBE. TUBE FEEDINGS INFUSING/TOLERATING. PATIENT NOT PROGRESSING, REMAINS NO CODE.
[2020-11-17] VITALS (31 sets, daily range): BP systolic 81–126; BP diastolic 26–67
--- NOTE | 2020-11-17 03:28 | NUR ---
ASSUMED CARE OF PATIENT AT 1900. PATIENT REMAINS ON HIGH FIO2 AND PEEP. DOES NOT FOLLOW COMMANDS. CHEST TUBES REMAIN IN PLACE. YESSY MAY CALLED THIS RN, UPDATE GIVEN. DISCUSSED PATIENT'S EXTREMELY CRITICAL STATUS. OFFERED TO USE THE IPAD TO FACETIME WITH PATIENT. SHE DECLINED AT THIS TIME, BUT SAID SHE HAD BEEN ABLE TO BEFORE. NOT PROGRESSING TOWARDS POC GOALS.
[2020-11-17 04:26] LABS: BE(vivo) 8.2 mmol/L (-2 to +3); HCO3 33.8 mmol/L (22.0-26.0); PCO2 52.7 mmHg (35.0-45.0); PO2 58.5 mmHg (80.0-100.0); pH 7.425 (7.360-7.450); sO2 90.5 % (92.0-98.0)
[2020-11-17 06:32] LABS: HEMATOCRIT 27.6 % (42.0-52.0); MCH 30.1 pg (26.0-34.0); MCHC 32.7 g/dL (28.0-37.0); PLATELET COUNT 215 thou/uL (150-400); RDW 12.9 % (10.5-14.5); WBC 10.5 thou/uL (4.0-11.0)
[2020-11-17 07:26] LABS: ALBUMIN 1.7 g/dL (3.4-5.0); CALCIUM 8.4 mg/dL (8.5-10.1); CREATININE 0.5 mg/dL (0.7-1.3); POTASSIUM 3.8 mmol/L (3.5-5.1); TOTAL BILIRUBIN 0.3 mg/dL (0.2-1.0); TOTAL PROTEIN 5.3 g/dL (6.4-8.2)
[2020-11-17 10:57] LABS: ABSOLUTE NEUTROPHILS 9.5 thou/uL (1.4-8.2); PLATELET ESTIMATE NORMAL
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
--- NOTE | 2020-11-17 19:45 | NUR ---
Dr. Duff present @ 1715 and in room to assess pt. updated on chest tubes with air leaks. temporary decrease in air leak in left pleural chest tube, however it has increased now. portable chest xray ordered.
[2020-11-18] VITALS (35 sets, daily range): BP systolic 87–156; BP diastolic 40–77
[2020-11-18 03:38] LABS: BE(vivo) 9.5 mmol/L (-2 to +3); HCO3 35.3 mmol/L (22.0-26.0); PCO2 54.1 mmHg (35.0-45.0); PO2 65.9 mmHg (80.0-100.0); pH 7.432 (7.360-7.450); sO2 93.2 % (92.0-98.0)
[2020-11-18 06:30] LABS: ABSOLUTE NEUTROPHILS 11.1 thou/uL (1.4-8.2); BASOPHILS 0.4 % (0.0-2.0); EOSINOPHILS 0.9 % (0.0-3.0); HEMATOCRIT 30.8 % (42.0-52.0); HEMOGLOBIN 10.2 gm/dL (14.0-18.0); LYMPHOCYTES 5.4 % (24.0-44.0); MCH 29.8 pg (26.0-34.0); MCHC 33.1 g/dL (28.0-37.0); MCV 90.1 fL (80.0-100.0); MONOCYTES 1.5 % (1.0-8.0); PLATELET COUNT 235 thou/uL (150-400); POLYS 91.8 % (36.0-66.0); RBC 3.41 mil/uL (4.50-6.00); WBC 12.1 thou/uL (4.0-11.0)
[2020-11-18 06:56] LABS: ALBUMIN 2.4 g/dL (3.4-5.0); CALCIUM 8.8 mg/dL (8.5-10.1); CREATININE 0.4 mg/dL (0.7-1.3); POTASSIUM 3.5 mmol/L (3.5-5.1); TOTAL BILIRUBIN 0.5 mg/dL (0.2-1.0); TOTAL PROTEIN 6.2 g/dL (6.4-8.2)
[2020-11-18 13:12] LABS: BE(vivo) 9.5 mmol/L (-2 to +3); HCO3 34.1 mmol/L (22.0-26.0); PCO2 46.9 mmHg (35.0-45.0); sO2 82.4 % (92.0-98.0)
[2020-11-18 13:14] LABS: PO2 43.7 mmHg (80.0-100.0)
--- NOTE | 2020-11-18 13:30 | NUR ---
CALL PLACED TO DR. FELIZ (AT 1250) TO NOTIFY HIM OF PT SLOWLY BUT STEADILY DESATTING TO SA02-78%. RN PREVIOUSLY CONFIRMED BOTH CHEST TUBES SECURED IN PLACE, POSITIONED OPTIMALLY HOWEVER CONTINUED PERSISTANT AIR LEAKS IN SELENE CHEST TUBE WITH LEFT GREATER THAN RIGHT. HOMERO RT OBTAINED ABG'S. PORTABLE CHEST XRAY COMPLETED, ALBUMIN INFUSING WITH LASIX TO FOLLOW. HOMERO RT IN COMMUNICATION WITH DR. FELIZ REGARDING ABG'S. PER DR. FELIZ PEEP INCREASED TO 16. SLIGHT INCREASE IN SA02.
--- NOTE | 2020-11-18 15:00 | NUR ---
DR. HARDEN AND SHANTE BERNSTEIN PRESENT AND CHEST TUBE #3 PLACED IN R ANTERIOR CHEST. PCT TO -20 FLUCUATION, AIR LEAK PRESENT, NO DRAINAGE. PORTABLE CHEST XRAY COMPLETED, THEN OBSERVED BY AND PA. R PCT (#2) PLACED TO WATER SEAL.
--- NOTE | 2020-11-18 18:45 | NUR ---
SAO2 PROGRESSIVELY INCREASING, UP TO 91%.
[2020-11-19] VITALS (66 sets, daily range): BP systolic 86–148; BP diastolic 40–82
--- NOTE | 2020-11-19 01:08 | NUR ---
Report received, care assumed. Assessments done as documented. Talked to JOHN at 2350. Updated her on pt's condition. Also asked her to bring copy of DPOA since it's not in patient's chart. he stated she will work on it.
--- NOTE | 2020-11-19 08:00 | NUR ---
Assummed care of patient from the night . Chemo at 0700. Patient is heavily sedated, No response to painful stimuli. Tolerating tube feeding and urine output is adequate via becker. Will continue to monitor.
--- NOTE | 2020-11-19 11:50 | NUR ---
Left chest tube now at -20 cm, continues to tital with air leak noted. O2 sat in the upper 80's dropping into the mid to lower 80's. Breathe sounds coarse crackles but more diminished, Sedation increased. All chest tubes are patent.
--- NOTE | 2020-11-19 13:24 | NUR ---
ON-GOING ASSESSMENT: CM REVIEWED CHART. PT REMAINS COVID POSITIVE ON THE VENT, FI02 100 PERCENT. PT HAS BILATERAL PNEUMOTHORACIES AND CHEST TUBES IN PLACE. PROGNOSIS IS GUARDED, BEDSIDE RN HAS BEEN TALKING WITH FAMILY.
--- NOTE | 2020-11-19 13:27 | NUR ---
ON-GOING ASSESSMENT: CM REVIEWED CHART. PT REMAINS COVID POSITIVE ON THE VENT, FI02 100 PERCENT. PT HAS BILATERAL PNEUMOTHORACIES AND CHEST TUBES IN PLACE. PROGNOSIS IS GUARDED, BEDSIDE RN HAD BEEN TALKING WITH LALO.
--- NOTE | 2020-11-19 13:45 | NUR ---
Propofol increased for vent management and Levophed started for hypotension as O2 sat in the lower 80's at 1230. Dr Avina rounded and aware of patient status. O2 sat slowly increasing into the upper 80's. Will continue to monitor.
[2020-11-20] VITALS (55 sets, daily range): BP systolic 86–162; BP diastolic 47–78
[2020-11-20 05:32] LABS: HEMATOCRIT 30.6 % (42.0-52.0); HEMOGLOBIN 10.1 gm/dL (14.0-18.0); MCH 29.9 pg (26.0-34.0); MCHC 33.1 g/dL (28.0-37.0); MCV 90.5 fL (80.0-100.0); RBC 3.38 mil/uL (4.50-6.00); RDW 13.2 % (10.5-14.5); WBC 10.7 thou/uL (4.0-11.0)
[2020-11-20 05:34] LABS: CALCIUM 8.8 mg/dL (8.5-10.1); CREATININE 0.4 mg/dL (0.7-1.3); POTASSIUM 3.8 mmol/L (3.5-5.1)
--- NOTE | 2020-11-20 13:21 | NUR ---
1115 Ame contacted at this time to confirm her intenetion to withdraw care. She nor his immediate family wants to be at bedside before or after extubation. 1150 Patient was palliatively extubated. I stopped all other therapies at this time. 1249 I observed asystole on the quispe monitor. Both Binh Rodriguez and I auscultated to heart beat. Patient pronounced at this time. 1310 Ame informed of at this time. She reintereated they cannot afford to go to a home and per social work they plan to have state cremation.
--- NOTE | 2020-11-23 13:22 | NUR ---
Spoke with security. They are coordinating with the pt's eldest dtr to come by and sign the [facility] Indigent Burial application. They will email or fax it for her and request she followup with them directly as well as Tricia at [facility] [phone]. Tricia is the contact at [facility] for their program with the indigent burial requests from [facility].
== END 2020-11-20 12:49 | DRG 870 ==
LOC: ER 10:00 → EROBS 12:51 → ICU 12:51
PROVIDERS: Emergency Medicine; Internal Medicine Pulmonary Disease; Pediatrics; Specialist; ADMIT Hospitalist; ATTEND Hospitalist
PROC: 5A09457 Assistance with Respiratory Ventilation, 24-96 Consecutive Hours, Continuous Positive Airway Pressure (ICD-10-PCS; 2020-11-01)
PROC: XW033E5 Introduction of Remdesivir Anti-infective into Peripheral Vein, Percutaneous Approach, New Technology Group 5 (ICD-10-PCS; 2020-11-02)
PROC: B548ZZA Ultrasonography of Superior Vena Cava, Guidance (ICD-10-PCS; 2020-11-02)
PROC: 02HV33Z Insertion of Infusion Device into Superior Vena Cava, Percutaneous Approach (ICD-10-PCS; 2020-11-02)
PROC: 5A1955Z Respiratory Ventilation, Greater than 96 Consecutive Hours (ICD-10-PCS; 2020-11-03)
PROC: 0BH18EZ Insertion of Endotracheal Airway into Trachea, Via Natural or Artificial Opening Endoscopic (ICD-10-PCS; 2020-11-03)
PROC: 0W9B30Z Drainage of Left Pleural Cavity with Drainage Device, Percutaneous Approach (ICD-10-PCS; principal; 2020-11-06)
PROC: 0W9930Z Drainage of Right Pleural Cavity with Drainage Device, Percutaneous Approach (ICD-10-PCS; principal; 2020-11-06)
PROC: 0W9930Z Drainage of Right Pleural Cavity with Drainage Device, Percutaneous Approach (ICD-10-PCS; 2020-11-07)
PROC: 0W9930Z Drainage of Right Pleural Cavity with Drainage Device, Percutaneous Approach (ICD-10-PCS; 2020-11-15)
DX: A41.89 Other specified sepsis (principal); U07.1 COVID-19; J80 Acute respiratory distress syndrome; J12.82 Pneumonia due to coronavirus disease 2019; R65.21 Severe sepsis with septic shock; J93.9 Pneumothorax, unspecified; M06.9 Rheumatoid arthritis, unspecified; I10 Essential (primary) hypertension; E11.9 Type 2 diabetes mellitus without complications; E66.01 Morbid (severe) obesity due to excess calories; F10.20 Alcohol dependence, uncomplicated; Y90.9 Presence of alcohol in blood, level not specified; F41.9 Anxiety disorder, unspecified; Z66 Do not resuscitate; Z88.1 Allergy status to other antibiotic agents; Z79.899 Other long term (current) drug therapy; Z90.49 Acquired absence of other specified parts of digestive tract; Z86.718 Personal history of other venous thrombosis and embolism; Z68.31 Body mass index [BMI] 31.0-31.9, adult
CPT/HCPCS: 10078; 27000